=== PATIENT | female | born 1990 | race Two or more races ===

== ENCOUNTER 2021-01-28 00:28 | Emergency (ER) | payer OTHER ==
[~2021-01-28] VITALS: Ht 160 cm; Wt 61.2 kg
[2021-01-28 04:19] VITALS: BP 108/65
== END 2021-01-28 04:55 | disposition home or self-care (01) ==
LOC: ER 00:28
DX: M79.674 Pain in right toe(s) (principal); W22.8XXA Striking against or struck by other objects, initial encounter; Y93.89 Activity, other specified; Y92.89 Other specified places as the place of occurrence of the external cause; Y99.8 Other external cause status
CPT/HCPCS: 73620

== ENCOUNTER 2021-01-30 16:30 | Emergency (ER) | payer SELFPAY ==
[~2021-01-30] VITALS: Ht 160 cm; Wt 61.2 kg
[2021-01-30 16:45] VITALS: BP 118/65
[2021-01-30] MEDS ORDERED: HYDROcodone-ACET 5/325MG TAB PO ONE (17:30)
== END 2021-01-30 17:39 | disposition home or self-care (01) ==
LOC: ER 16:30
DX: S90.111A Contusion of right great toe without damage to nail, initial encounter (principal); X58.XXXA Exposure to other specified factors, initial encounter; Y93.89 Activity, other specified; Y92.89 Other specified places as the place of occurrence of the external cause; Y99.8 Other external cause status

== ENCOUNTER 2021-02-24 12:38 | Emergency (ER) | payer OTHER ==
[~2021-02-24] VITALS: Ht 160 cm; Wt 64.9 kg
[2021-02-24 13:30] VITALS: BP 114/56
== END 2021-02-24 14:00 | disposition home or self-care (01) ==
LOC: ER 12:38
DX: S90.111A Contusion of right great toe without damage to nail, initial encounter (principal); X58.XXXA Exposure to other specified factors, initial encounter; Y93.89 Activity, other specified; Y92.89 Other specified places as the place of occurrence of the external cause; Y99.8 Other external cause status